=== PATIENT | male | born 1975 | race Caucasian/White ===

== ENCOUNTER 2019-03-21 09:54 | Emergency (ER) | payer MEDICAID, OTHER ==
[~2019-03-21] VITALS: Ht 188 cm; Wt 122.5 kg
--- NOTE | 2019-03-21 10:22 | NUR ---
PATIENT WAS SEEN BY MD FOR C/O ANKLE SWELLING. GEORGINA WRAP APPLIED INSTRUCTED BY MD. DC, RX AND FOLLOW UP INSTRUCTIONS GIVEN AND EXPLAINED TO PATIENT WHO STATES HE UNDERSTANDS ALL INSTRUCTIONS.
== END 2019-03-21 10:25 | disposition home or self-care (01) ==
LOC: ER 09:54
DX: S93.402A Sprain of unspecified ligament of left ankle, initial encounter (principal); G43.909 Migraine, unspecified, not intractable, without status migrainosus; F31.9 Bipolar disorder, unspecified; V98.8XXA Other specified transport accidents, initial encounter; Y93.89 Activity, other specified; Y92.89 Other specified places as the place of occurrence of the external cause; Y99.8 Other external cause status
CPT/HCPCS: 73610; A4663

== ENCOUNTER 2020-10-22 11:54 | Emergency (ER) | payer MEDICAID, OTHER ==
[~2020-10-22] VITALS: Ht 182.9 cm; Wt 142.9 kg
[2020-10-22] MEDS ORDERED: OXCA600T5 PO (12:08)
[2020-10-22] MEDS ORDERED: ACETAMINOPHEN 325 MG TABLET PO ONE (12:15)
[2020-10-22] MEDS ORDERED: ACETAMINOPHEN 325 MG TABLET ONE (12:21)
--- NOTE | 2020-10-22 12:26 | NUR ---
PT IS IN ROOM #1B. DR ALVAREZ EVALUTED THE PT.
[2020-10-22 12:35] LABS: BASOPHILS % (AUTO) 0.3 % (0.0-2.0); EOSINOPHILS % (AUTO) 0.6 % (0.0-7.0); HEMATOCRIT 46.6 % (36.7-47.1); HEMOGLOBIN 15.5 g/dL (12.5-16.3); LYMPHOCYTES # (AUTO) 1.2 K/uL (20.0-40.0); LYMPHOCYTES % (AUTO) 21.2 % (20.5-51.5); MEAN CORPUSCULAR HEMOGLOBIN 29.2 uug (23.8-33.4); MEAN CORPUSCULAR HGB CONC 33 g/dL (32.5-36.3); MEAN CORPUSCULAR VOLUME 87.7 fL (73.0-96.2); MONOCYTES # (AUTO) 0.5 K/uL (2.0-10.0); MONOCYTES % (AUTO) 7.9 % (0.0-11.0); PLATELET COUNT (AUTO) 271 K/uL (152-348); RED BLOOD CELL COUNT(AUTO) 5.31 MIL/uL (4.06-5.63); WHITE BLOOD COUNT (AUTO) 5.7 K/uL (3.6-10.2)
[2020-10-22 12:49] LABS: BILIRUBIN,DIRECT 0.1 mg/dL (0.0-0.2); BILIRUBIN,TOTAL 0.4 mg/dL (0.2-1.0); CREATININE 0.9 mg/dL (0.6-1.3); POTASSIUM 3.8 mmol/L (3.5-5.1); TOTAL PROTEIN, SERUM 7.8 g/dL (6.4-8.2)
[2020-10-22] MEDS ORDERED: AMLO-212 PO (16:03)
[2020-10-22 17:08] VITALS: BP 141/81
--- NOTE | 2020-10-22 17:08 | NUR ---
PT WAS D/C'd TO HOME. D/C INSTRUCTIONS GIVEN TO THE PT BY DR ALVAREZ.
== END 2020-10-22 17:09 | disposition home or self-care (01) ==
LOC: ER 11:54
DX: R51.9 Headache, unspecified (principal); I10 Essential (primary) hypertension; G56.92 Unspecified mononeuropathy of left upper limb; R94.31 Abnormal electrocardiogram [ECG] [EKG]; F31.9 Bipolar disorder, unspecified; Z79.899 Other long term (current) drug therapy; Z87.891 Personal history of nicotine dependence
CPT/HCPCS: 36415; 70030-TC; 71045; 85025; 93005; A4663

== ENCOUNTER 2024-02-23 09:20 | Emergency (ER) | payer OTHER ==
[~2024-02-23] VITALS: Ht 190.5 cm; Wt 154.7 kg
[~2024-02-23 09:20] MED LIST: AMLO-212 PO; OXCA600T5 PO
[2024-02-23] MEDS ORDERED: NORVASC (09:29)
[2024-02-23] MEDS ORDERED: ATEN25TA PO (09:32)
[2024-02-23] MEDS: IV NORMAL SALINE 1000 ML BAG IV ONE (09:52)
[2024-02-23 09:58] LABS: BASOPHILS % (AUTO) 0.4 % (0.0-2.0); EOSINOPHILS % (AUTO) 0.3 % (0.0-7.0); HEMATOCRIT 45.5 % (36.7-47.1); HEMOGLOBIN 15.7 g/dL (12.5-16.3); LYMPHOCYTES # (AUTO) 1.4 K/uL (0.8-4.8); LYMPHOCYTES % (AUTO) 14.7 % (20.5-51.5); MEAN CORPUSCULAR HEMOGLOBIN 30.7 uug (23.8-33.4); MEAN CORPUSCULAR HGB CONC 34 g/dL (32.5-36.3); MEAN CORPUSCULAR VOLUME 89.2 fL (73.0-96.2); MONOCYTES # (AUTO) 0.9 K/uL (0.1-1.30); MONOCYTES % (AUTO) 9.5 % (0.0-11.0); NEUTROPHILS # (AUTO) 7.1 K/uL (1.8-8.9); NEUTROPHILS % (AUTO) 75.1 % (38.5-71.5); PLATELET COUNT (AUTO) 278 K/uL (152-348); RED CELL DISTRIBUTION WIDTH 12.9 % (12.1-16.2); WHITE BLOOD COUNT (AUTO) 9.5 K/uL (3.6-10.2)
[2024-02-23 10:01] LABS: DIFFERENTIAL COMMENT 1
[2024-02-23 10:07] LABS: CALCIUM 9.2 mg/dL (8.5-10.1); CARBON DIOXIDE 23 mmol/L (21-32); CHLORIDE 103 mmol/L (98-107); CREATININE 1.2 mg/dL (0.6-1.3); GLUCOSE 125 mg/dL (74-106); POTASSIUM 3.7 mmol/L (3.5-5.1); SODIUM SERUM 139 mmol/L (136-145); UREA NITROGEN, BLOOD 21 mg/dL (7-18)
[2024-02-23 10:16] LABS: ALANINE AMINOTRANSFERASE 41 U/L (16-63); ALBUMIN 4.1 g/dL (3.4-5.0); ALKALINE PHOSPHATASE 71 U/L (50-136); ASPARTATE AMINOTRANSFERASE 43 U/L (15-37); BILIRUBIN,DIRECT 0.3 mg/dL (0.0-0.2); BILIRUBIN,TOTAL 1.3 mg/dL (0.2-1.0); TOTAL PROTEIN, SERUM 8.2 g/dL (6.4-8.2)
[2024-02-23 10:38] LABS: MAGNESIUM 2.1 mg/dL (1.8-2.4)
[2024-02-23] MEDS ORDERED: FLAS1KIT2 TP (11:22)
[2024-02-23] MEDS ORDERED: FLAS1EAC2 TP (11:22)
[2024-02-23 11:49] VITALS: BP 122/79; O2SAT 98
== END 2024-02-23 11:49 | disposition home or self-care (01) ==
LOC: ER 09:20
DX: R53.1 Weakness (principal); R53.83 Other fatigue; I10 Essential (primary) hypertension; E66.01 Morbid (severe) obesity due to excess calories; G43.909 Migraine, unspecified, not intractable, without status migrainosus; F17.210 Nicotine dependence, cigarettes, uncomplicated; Z68.41 Body mass index [BMI] 40.0-44.9, adult; Z79.899 Other long term (current) drug therapy
CPT/HCPCS: 99284; 96360; 80076; 80048; 82607; 83735; 85025; 84484; 93005; J7040; A4606; A4663

== ENCOUNTER 2024-07-24 08:31 | Emergency (ER) | payer OTHER ==
[~2024-07-24] VITALS: Ht 188 cm; Wt 147.4 kg
[~2024-07-24 08:31] MED LIST changes: +ATEN25TA PO; +FLAS1EAC2 TP; +FLAS1KIT2 TP
[2024-07-24] MEDS ORDERED: ALBUTEROL SULFATE 2.5 MG/3 ML NEBU ONE (08:58)
[2024-07-24] MEDS ORDERED: IPRATROPIUM BROMIDE 0.5 MG/2.5 ML NEBU ONE (08:58)
[2024-07-24 09:00] VITALS: O2SAT 96
[2024-07-24 09:04] LABS: BASOPHILS % (AUTO) 0.3 % (0.0-2.0); EOSINOPHILS % (AUTO) 0.3 % (0.0-7.0); HEMATOCRIT 41.7 % (36.7-47.1); HEMOGLOBIN 14.5 g/dL (12.5-16.3); LYMPHOCYTES # (AUTO) 0.9 K/uL (0.8-4.8); LYMPHOCYTES % (AUTO) 6.2 % (20.5-51.5); MEAN CORPUSCULAR HEMOGLOBIN 33.1 uug (23.8-33.4); MEAN CORPUSCULAR HGB CONC 35 g/dL (32.5-36.3); MEAN CORPUSCULAR VOLUME 94.8 fL (73.0-96.2); MONOCYTES # (AUTO) 0.9 K/uL (0.1-1.30); MONOCYTES % (AUTO) 6.5 % (0.0-11.0); NEUTROPHILS # (AUTO) 12.4 K/uL (1.8-8.9); NEUTROPHILS % (AUTO) 86.7 % (38.5-71.5); PLATELET COUNT (AUTO) 340 K/uL (152-348); RED CELL DISTRIBUTION WIDTH 12.6 % (12.1-16.2); WHITE BLOOD COUNT (AUTO) 14.4 K/uL (3.6-10.2)
[2024-07-24 09:08] LABS: DIFFERENTIAL COMMENT 1
[2024-07-24 09:13] LABS: CALCIUM 8.6 mg/dL (8.5-10.1); CREATININE 0.9 mg/dL (0.6-1.3); POTASSIUM 4.1 mmol/L (3.5-5.1)
[2024-07-24] MEDS: IPRATROPIUM BROMIDE 0.5 MG/2.5 ML NEBU NEB ONE (09:13)
[2024-07-24] MEDS: ALBUTEROL SULFATE 2.5 MG/3 ML NEBU NEB ONE (09:14)
[2024-07-24] MEDS ORDERED: GUAI5SYR4 PO (09:37)
[2024-07-24] MEDS ORDERED: CEFD300C3 PO (09:37)
[2024-07-24] MEDS ORDERED: ALBU6.7H9 INH (09:37)
[2024-07-24] MEDS ORDERED: AZIT500T4 PO (09:37)
[2024-07-24 09:50] VITALS: O2SAT 99
[2024-07-24 09:56] VITALS: BP 131/78; TEMP 98; O2SAT 99
== END 2024-07-24 09:57 | disposition home or self-care (01) ==
LOC: ER 08:31
DX: J45.909 Unspecified asthma, uncomplicated (principal); E66.9 Obesity, unspecified; F17.200 Nicotine dependence, unspecified, uncomplicated; F31.9 Bipolar disorder, unspecified; Z79.899 Other long term (current) drug therapy; Z68.41 Body mass index [BMI] 40.0-44.9, adult; Z88.7 Allergy status to serum and vaccine
CPT/HCPCS: 36415; 71045; 85025; A4606; A4663; J3590